=== PATIENT | female | born 1955 | race Caucasian/White ===

== ENCOUNTER → 2023-11-01 09:19 | Outpatient (REF) | payer MEDICARE, SELFPAY | LOC: HWWDC 09:19 | PROVIDERS: ATTENDING PHYSICIAN Family Medicine; REFERRING PHYSICIAN Obstetrics & Gynecology | DX: Z12.31 Encounter for screening mammogram for malignant neoplasm of breast (principal) | CPT/HCPCS: 77063; 77067 ==

== ENCOUNTER → 2024-02-21 08:11 | Outpatient (REF) | payer MEDICARE, SELFPAY ==
[2024-02-21 12:31] LABS: ALT (SGPT) 16 U/L (0-35); AST (SGOT) 23 U/L (14-36); Albumin 4.4 g/dl (3.5-5.0); Alkaline Phosphatase 62 U/L (38-126); Blood Urea Nitrogen 16 mg/dl (7-17); Calcium 9.9 mg/dl (8.4-10.2); Carbon Dioxide 30 mmol/L (22-30); Chloride 101 mmol/L (98-107); Glucose 75 mg/dl (70-99); Potassium 4.5 mmol/L (3.5-5.1); Sodium 139 mmol/L (135-145); Total Bilirubin 0.4 mg/dl (0.2-1.3); Total Protein 7.2 g/dl (6.3-8.2); eGFR > 60.00
[2024-02-21 12:48] LABS: Vitamin D, 25-OH*** 43.2 ng/mL (30-80)
[2024-02-21 15:34] LABS: Intact PTH 53.8 pg/ml (13.6-85.8)
== END ==
LOC: HWRAD 08:11
PROVIDERS: ATTENDING PHYSICIAN Physician Assistant; FAMILY PHYSICIAN Family Medicine
DX: M81.0 Age-related osteoporosis without current pathological fracture (principal); Z13.820 Encounter for screening for osteoporosis; E21.5 Disorder of parathyroid gland, unspecified; E55.9 Vitamin D deficiency, unspecified
CPT/HCPCS: 36415; 77080; 80053; 82306; 83970

== ENCOUNTER → 2024-11-01 08:32 | Outpatient (REF) | payer MEDICARE, SELFPAY | LOC: HWWDC 08:32 | PROVIDERS: ATTENDING PHYSICIAN Physician Assistant | DX: Z12.31 Encounter for screening mammogram for malignant neoplasm of breast (principal) | CPT/HCPCS: 77063; 77067 ==